=== PATIENT | male | born 1955 | race African-American/Black ===

== ENCOUNTER 2016-06-23 07:51 | Emergency (ER) | payer MEDICAID ==
[~2016-06-23] VITALS: Ht 190.5 cm; Wt 138.3 kg
[2016-06-23 07:58] VITALS: BP 105/51
== END 2016-06-23 08:09 | disposition home or self-care (01) ==
LOC: ER 07:53
DX: M25.512 Pain in left shoulder (principal); M54.2 Cervicalgia; I10 Essential (primary) hypertension
CPT/HCPCS: A4606; Z7610

== ENCOUNTER 2016-06-26 05:27 | Emergency (ER) | payer MEDICAID ==
[~2016-06-26] VITALS: Ht 188 cm; Wt 104.3 kg
[2016-06-26 05:30] VITALS: BP 152/98
== END 2016-06-26 06:11 | disposition home or self-care (01) ==
LOC: ER 05:28
DX: M54.2 Cervicalgia (principal); I10 Essential (primary) hypertension
CPT/HCPCS: 99283; A4606; Z7610